=== PATIENT | female | born 1975 | race Caucasian/White ===

== ENCOUNTER 2019-03-21 00:23 | Emergency (ER) | payer MEDICAID ==
[~2019-03-21] VITALS: Ht 161.3 cm; Wt 136.1 kg
[2019-03-21 00:58] LABS: BASO # 0.1 x10^3/uL (0.0-0.2); BASO % 1 % (0-3); EOS # 0.1 x10^3/uL (0.0-0.7); EOS % 1 % (0-3); HEMATOCRIT 34.5 % (36.0-47.0); LYMPH # 3.2 x10^3/uL (1.0-4.8); LYMPH % 32 % (24-48); MEAN CORPUSCULAR HEMOGLOBIN 26 pg (25-35); MEAN CORPUSCULAR HGB CONC 32 g/dL (31-37); MEAN CORPUSCULAR VOLUME 80 fL (79-100); MONO # 0.6 x10^3/uL (0.0-1.1); MONO % 6 % (0-9); NEUT # 6.1 x10^3/uL (1.8-7.7); NEUT % 61 % (31-73); PLATELET COUNT 305 x10^3/uL (140-400); RED BLOOD COUNT 4.32 x10^6/uL (3.50-5.40); RED CELL DISTRIBUTION WIDTH 18.4 % (11.5-14.5)
--- NOTE | 2019-03-21 01:03 | PHYS DOC ---
Past Medical History Past Medical History: Hypertension Adult General Chief Complaint Chief Complaint: CHEST PAIN [facility] HPI Patient is a 43 year old female was brought here by EMS for evaluation of epigastric abdominal pain that radiated to in her back, right upper quadrant abdominal pain that radiated to her back. Symptoms started after she drunk alcohol earlier this evening. She denies any nausea vomiting. Patient denies any history of heart problem. Patient has history hypertension. Patient denies any recent travel or operation. Patient had no history of blood clot disorder. All other ROS is negative unless otherwise noted in HPI Review of Systems Review of Systems See above Allergies Allergies Allergies Coded Allergies Type Severity Reaction Last Updated Verified amoxicillin Allergy Unknown 03/21/19 Yes Physical Exam Physical Exam See above Constitutional: Well developed, well nourished, no acute distress, non-toxic appearance. [] HENT: Normocephalic, atraumatic, bilateral external ears normal, oropharynx moist, no oral exudates, nose normal. [] Eyes: PERRLA, EOMI, conjunctiva normal, no discharge. [] Neck: Normal range of motion, no tenderness, supple, no stridor. [] Cardiovascular:Heart rate regular rhythm, no murmur [] Lungs & Thorax: Bilateral breath sounds clear to auscultation [] Abdomen: Bowel sounds normal, soft, no tenderness, no masses, no pulsatile masses. [] Skin: Warm, dry, no erythema, no rash. [] Back: No tenderness, no CVA tenderness. [] Extremities: No tenderness, no cyanosis, no clubbing, ROM intact, no edema. [] Neurologic: Alert and oriented X 3, normal motor function, normal sensory function, no focal deficits noted. [] Psychologic: Affect normal, judgement normal, mood normal. [] Current Patient Data Vital Signs Vital Signs Date Time Temp Pulse Resp B/P (MAP) Pulse Ox O2 Delivery O2 Flow Rate FiO2 03/21/19 03:52 88 18 130/55 (80) 96 Room Air 03/21/19 00:24 98.3 98.3 Lab Values Laboratory Tests Test 03/21/19 00:45 White Blood Count 10.0 x10^3/uL (4.0-11.0) Red Blood Count 4.32 x10^6/uL (3.50-5.40) Hemoglobin 11.0 g/dL (12.0-15.5) L Hematocrit 34.5 % (36.0-47.0) L Mean Corpuscular Volume 80 fL (79-100) Mean Corpuscular Hemoglobin 26 pg (25-35) Mean Corpuscular Hemoglobin Concent 32 g/dL (31-37) Red Cell Distribution Width 18.4 % (11.5-14.5) H Platelet Count 305 x10^3/uL (140-400) Neutrophils (%) (Auto) 61 % (31-73) Lymphocytes (%) (Auto) 32 % (24-48) Monocytes (%) (Auto) 6 % (0-9) Eosinophils (%) (Auto) 1 % (0-3) Basophils (%) (Auto) 1 % (0-3) Neutrophils # (Auto) 6.1 x10^3/uL (1.8-7.7) Lymphocytes # (Auto) 3.2 x10^3/uL (1.0-4.8) Monocytes # (Auto) 0.6 x10^3/uL (0.0-1.1) Eosinophils # (Auto) 0.1 x10^3/uL (0.0-0.7) Basophils # (Auto) 0.1 x10^3/uL (0.0-0.2) Prothrombin Time 12.9 SEC (11.7-14.0) Prothrombin Time INR 1.0 (0.8-1.1) Activated Partial Thromboplast Time 24 SEC (24-38) Sodium Level 141 mmol/L (136-145) Potassium Level 3.5 mmol/L (3.5-5.1) Chloride Level 104 mmol/L (98-107) Carbon Dioxide Level 23 mmol/L (21-32) Anion Gap 14 (6-14) Blood Urea Nitrogen 10 mg/dL (7-20) Creatinine 0.6 mg/dL (0.6-1.0) Estimated GFR (Cockcroft-Gault) 110.2 BUN/Creatinine Ratio 17 (6-20) Glucose Level 91 mg/dL (70-99) Calcium Level 9.2 mg/dL (8.5-10.1) Magnesium Level 1.9 mg/dL (1.8-2.4) Total Bilirubin 0.1 mg/dL (0.2-1.0) L Aspartate Amino Transferase (AST) 14 U/L (15-37) L Alanine Aminotransferase (ALT) 26 U/L (14-59) Alkaline Phosphatase 126 U/L (46-116) H Troponin I Quantitative < 0.017 ng/mL (0.000-0.055) XS-Evs-E-Type Natriuretic Peptide 44 pg/mL (0-124) Total Protein 6.9 g/dL (6.4-8.2) Albumin 3.5 g/dL (3.4-5.0) Albumin/Globulin Ratio 1.0 (1.0-1.7) Lipase 118 U/L (73-393) Laboratory Tests 03/21/19 00:45 Laboratory Tests 03/21/19 00:45 EKG EKG []EKG was read by this physician at 251 am, rate of 88 beats per minutes, sinus rhythm, no ST elevation. Radiology/Procedures Radiology/Procedures [][address] [id number] IMAGING REPORT Signed PATIENT: EDGARD DELEON ACCOUNT: [id number] : 1975 LOCATION: ER AGE: 43 SEX: F EXAM STATUS: REG ER ORD. PHYSICIAN: MARCELLO HARDIN DO REASON: RUQ ABDOMINAL PAIN PROCEDURE: ABDOMEN LTD Examination: Ultrasound abdomen limited HISTORY: History of right upper quadrant pain COMPARISON: None available. FINDINGS: The pancreas is poorly visualized. Increased echogenicity throughout the liver likely hepatic steatosis. The liver length measures 21.5 cm. No evidence of gallstones. Right kidney measures 13.2 cm in length The common bile duct measures 4.5 mm in diameter. Examination limited due to patient body habitus. IMPRESSION: 1. Hepatomegaly with hepatic steatosis. 2. No evidence of gallstones. Electronically signed by: Yunier Singleton MD (03/21/2019 2:31 AM) [facility] DICTATED and SIGNED BY: YUNIER SINGLETON MD DATE: 03/21/[address] [id number] IMAGING REPORT Signed PATIENT: EDGARD DELEON ACCOUNT: [id number] : 1975 LOCATION: ER AGE: 43 SEX: F EXAM STATUS: REG ER ORD. PHYSICIAN: MARCELLO HARDIN DO REASON: CHEST PAIN PROCEDURE: PORTABLE CHEST 1V EXAM: CHEST 1 VIEW History: Chest pain COMPARISON: None available. TECHNIQUE: Single portable radiograph of the chest FINDINGS: The cardiac silhouette is unremarkable. The lungs are clear bilaterally. The costophrenic sulci are clear and well demarcated. IMPRESSION: No radiographic evidence of an acute cardiopulmonary process. Electronically signed by: Yunier Singleton MD (03/21/2019 3:35 AM) [facility] DICTATED and SIGNED BY: YUNIER SINGLETON MD DATE: 03/21/19 0335 Course & Med Decision Making Course & Med Decision Making Pertinent Labs and Imaging studies reviewed. (See chart for details) [] Dragon Disclaimer Dragon Disclaimer This electronic medical record was generated, in whole or in part, using a voice recognition dictation system. The HEART Score for CP Pts HEART Score for Chest Pain: HEART Score for Chest Pain Response (Comments) Value History Slighlty/Non-Suspicious 0 ECG Nonspecific Repolarizatio 1 Age < 45 0 Risk Factors 1 or 2 Risk Factors 1 Troponin < Normal Limit 0 Total 2 Risk Factors: Risk Factors: DM, Current or recent (<one month) smoker, HTN, HLP, family history of CAD, obesity. Risk Scores: Score 0 - 3: 2.5% MACE over next 6 weeks - Discharge Home Score 4 - 6: 20.3% MACE over next 6 weeks - Admit for Clinical Observation Score 7 - 10: 72.7% MACE over next 6 weeks - Early Invasive Strategies Departure Departure Impression: Primary Impression: Fatty liver Additional Impressions: Chest pain Abdominal pain Disposition: HOME, SELF-CARE Condition: STABLE Patient Instructions: Abdominal Migraine, Chest Pain (Nonspecific) Problem Qualifiers MARCELLO HARDIN DO Mar 21, 2019 01:03
[2019-03-21 01:07] LABS: PROTHROMBIN TIME PATIENT 12.9 SEC (11.7-14.0)
[2019-03-21 01:09] LABS: CALCIUM 9.2 mg/dL (8.5-10.1); CREATININE 0.6 mg/dL (0.6-1.0); GFR 110.2; POTASSIUM 3.5 mmol/L (3.5-5.1)
[2019-03-21 01:14] LABS: ALBUMIN 3.5 g/dL (3.4-5.0); TOTAL PROTEIN 6.9 g/dL (6.4-8.2)
[2019-03-21 01:15] LABS: MAGNESIUM 1.9 mg/dL (1.8-2.4); TOTAL BILIRUBIN 0.1 mg/dL (0.2-1.0)
--- NOTE | 2019-03-21 02:34 | RAD ---
Examination: Ultrasound abdomen limited HISTORY: History of right upper quadrant pain COMPARISON: None available. FINDINGS: The pancreas is poorly visualized. Increased echogenicity throughout the liver likely hepatic steatosis. The liver length measures 21.5 cm. No evidence of gallstones. Right kidney measures 13.2 cm in length The common bile duct measures 4.5 mm in diameter. Examination limited due to patient body habitus. IMPRESSION: 1. Hepatomegaly with hepatic steatosis. 2. No evidence of gallstones. Electronically signed by: Yunier Arciniega MD (03/21/2019 2:31 AM) [facility]
--- NOTE | 2019-03-21 03:38 | RAD ---
EXAM: CHEST 1 VIEW History: Chest pain COMPARISON: None available. TECHNIQUE: Single portable radiograph of the chest FINDINGS: The cardiac silhouette is unremarkable. The lungs are clear bilaterally. The costophrenic sulci are clear and well demarcated. IMPRESSION: No radiographic evidence of an acute cardiopulmonary process. Electronically signed by: Yunier Arciniega MD (03/21/2019 3:35 AM) [facility]
[2019-03-21 03:52] VITALS: BP 130/55
--- NOTE | 2019-03-21 07:25 | EKG ---
[facility] [address] [place] [address] Test Date: 2019-03-21 Test Time: 00:38:25 Pat Name: EDGARD DELEON Department: Room: Gender: F Record Center Coordinator: : 1975 Requested By: MARCELLO HARDIN Order Number: [id number] Reading MD: Measurements Intervals [place] Rate: 91 P: 42 CO: 178 QRS: 45 QRSD: 94 T: 27 QT: 352 QTc: 440 Interpretive Statements SINUS RHYTHM NORMAL ECG No previous ECG available for comparison
--- NOTE | 2019-03-21 07:26 | EKG ---
[facility] [address] [place] [address] Test Date: 2019-03-21 Test Time: 02:51:56 Pat Name: EDGARD DELEON Department: Room: Gender: F [employer]: : 1975 Requested By: MARCELLO HARDIN Order Number: [id number] Reading MD: Measurements Intervals [place] Rate: 88 P: 47 VT: 162 QRS: 39 QRSD: 100 T: 27 QT: 362 QTc: 441 Interpretive Statements SINUS RHYTHM QRS(T) CONTOUR ABNORMALITY CONSIDER INFERIOR MYOCARDIAL DAMAGE POSSIBLY ABNORMAL ECG RI6.01 No previous ECG available for comparison
== END 2019-03-21 04:04 | disposition home or self-care (01) ==
LOC: ER 00:23
DX: R10.13 Epigastric pain (principal); R10.11 Right upper quadrant pain; R07.89 Other chest pain; K76.0 Fatty (change of) liver, not elsewhere classified; I10 Essential (primary) hypertension; Z88.1 Allergy status to other antibiotic agents
CPT/HCPCS: 36415; 71045; 76705; 80053; 83690; 83735; 83880; 84484; 85025; 85610; 85730; 93005; 99285-25